=== PATIENT | male | born 1995 | race Caucasian/White ===

== ENCOUNTER 2024-09-17 08:18 | Emergency (ER) | payer OTHER, SELFPAY ==
--- NOTE | 2024-09-17 08:22 | ED.URI ---
HPI - URI/Sore Throat General Chief Complaint: Upper Respiratory Infection Stated Complaint: Fever Time Seen by Provider: 09/17/24 08:41 Source: patient and RN notes reviewed Mode of arrival: ambulatory Limitations: no limitations History of Present Illness HPI Narrative: 29-year-old male presents to the [facility] with a 3 day history of flu-like symptoms. Has felt feverish, chills, body aches, cough and nausea. Has taken Tylenol. Onset (ago): day(s) (3) Treatments prior to arrival: acetaminophen Related Data Allergies Allergy/AdvReac Type Severity Reaction Status Date / Time No Known Allergies Allergy Verified 09/17/24 08:27 Review of Systems Review of Systems: All systems reviewed & are unremarkable except as noted in HPI and below Constitutional: Constitutional: Reports as per HPI, Reports body ache(s), Reports chills and Reports fever(s) (Subjective) ENT: Reports system reviewed and no additional complaints, except as documented Cardiovascular: Cardiovascular: Reports no additional cardiovascular complaints, Denies chest pain and Denies dyspnea Respiratory: Respiratory: Reports as per HPI, Denies chest congestion, Reports cough and Denies dyspnea Gastrointestinal: Gastrointestinal: Reports as per HPI and Reports nausea Musculoskeletal: Musculoskeletal: Reports no additional musculoskeletal complaints Integumentary/Breasts: Skin/Breast: Reports system reviewed and no additional complaints, except as docu PMFSH Comments At the time of my signature, I reviewed and agree with the nursing past medical, surgical, social, and family history. There is no relevant family history pertinent to the patient complaint. Exam Const: General: cooperative, healthy appearing, comfortable, no acute distress, well developed, alert and well nourished Nutritional Appearance: well nourished Orientation/consciousness: patient oriented x3 Limitations: no limitations HENMT: Head: normal to inspection Ears: hearing grossly normal bilaterally, external ears normal, TM's normal bilaterally, EAC's normal, mastoids normal and no periauricular adenopathy Mouth: Yes Normal oral and palatal mucosa present, Yes lip normal, Yes tongue normal and Yes moist mucous membranes Throat: posterior oropharynx normal, uvula midline and no uvular edema Eyes: General: appearance normal, both eyes and all related structures Alignment and Position: alignment normal Neck: Neck: normal visual inspection, full ROM, no lymphadenopathy and no meningeal signs Chest: Chest palpation & inspection: normal inspection of the chest Resp: Effort & Inspection: normal respiratory effort and able to speak in complete sentences Auscultation: clear to auscultation bilaterally, no crackles, no rales, no rhonchi and no wheezes Cardio: Rate: regular rate Skin: General skin exam: normal color and no rashes or lesions noted Neuro: General: patient oriented x3, gait normal, moves all extremities and no meningeal signs Cognition (Neuro): normal cognition Speech: normal speech Gait exam (Neuro): Normal gait present Extrem: General: normal to inspection, full ROM, capillary refill normal and normal gait Psych: Appearance: grossly normal and well kempt Mental Status: mental status grossly normal Speech and movement: Normal speech and movement present and Clear speech present Affect: normal affect Attitude: cooperative Course Course Level of Care: Express Care Visit Vital Signs Vital signs: Vital Signs Temperature 98.0 F 09/17/24 08:32 Pulse Rate 73 09/17/24 08:32 Respiratory Rate 16 09/17/24 08:32 Blood Pressure 135/77 09/17/24 08:32 Pulse Oximetry 99 09/17/24 08:32 Oxygen Delivery Room Air 09/17/24 08:32 Temperature 98.0 F 09/17/24 08:32 Pulse Rate 73 09/17/24 08:32 Respiratory Rate 16 09/17/24 08:32 Blood Pressure 135/77 09/17/24 08:32 Pulse Oximetry 99 09/17/24 08:32 Oxygen Delivery Room Air 09/17/24 08:32 Reviewed MDM - URI/Sore Throat MDM Narrative Medical decision making narrative: Patient sitting comfortably in exam room. Nontoxic, vitals stable. Patient in acute distress. Patient presents with nausea, viral symptoms X3 days. Patient's flu and COVID are negative. Patient is appropriate for outpatient treatment with viral URI with close follow-up Discharge instructions reviewed with patient, as well as provided in writing per nursing staff. The instructions also include specific and strict return/GO TO THE ER as well as f/u information. All questions have been answered, and the patient deny any further questions with discharge and discharge plan. Some parts of this dictation were generated by voice recognition software and may contain typographical and/or grammatical inaccuracies. Differential Diagnosis Differential diagnosis: Likely upper respiratory infection, sinusitis, viral infection and influenza Lab Data Labs: Lab Results 09/17/24 Range/Units 08:54 POC Influenza A Ag Negative (Negative) POC Influenza B Ag Negative (Negative) POC SARS CoV-2 Ag Negative (Negative) Reviewed Critical Care Time Critical Care Time Critical Care Time: No Discharge Plan Discharge Clinical Impression: Upper respiratory infection Qualifiers: URI type: unspecified viral URI Qualified Code(s): J06.9 - Acute upper respiratory infection, unspecified Patient Disposition: Home, Self-Care Condition: Stable Instructions: Antibiotic Form, Upper Respiratory Infection (DC) Additional Instructions: If you are having a hard time finding a physician please call our [facility] group liaison at [phone]. Your rapid COVID test were negative Your rapid flu test was negative Your symptoms are likely due to a viral illness, which is not treated with antibiotics. Typically viral infections last 7-10 days, can linger for couple of weeks. It is very important to treat your symptoms. Drink plenty of water, Gatorade, Pedialyte, ice pops or Jell-O. -Alternate Tylenol and Motrin per package directions for fever or pain. You can alternate every 4 hours -Antihistamine medication such as Zyrtec/Claritin/Jennifer during the day can help improve symptoms. -doing daily nasal irrigations can help relieve pressure your sinuses. Things like a Neti pot -Use Flonase twice a day for 5 days then daily to help reduce the inflammation and dry up your sinuses. -You can also use Mucinex. Be sure to drink plenty of water with this medication at least 8 ounces with every dose and it is important to drink 8 to 10 glasses of water per day. Water is a natural decongestant -Eat and drink things that are easy to swallow, like tea or soup, or popsicles. -Oral rinses such as: Salt water gargles and/or may use topical anesthetic (eg. Chloraseptic spray) or lozenges to relieve dryness or throat pain). -Frequent hand washing or hand graphic editor is one of the best ways to prevent spread of infection. -Using a vaporizer or humidifier at night will also help thin secretions and help with coughing up phlegm. -Follow up with primary care provider in 7-10 days if condition is not improving - For new or worsening symptoms go directly to the nearest ER Patient Language: Ukrainian Prescriptions: New ondansetron 4 mg tablet,disintegrating 4 mg PO Q8H PRN (Reason: nausea and vomiting) Qty: 7 0RF Follow-up/Referrals: UNKNOWN,DOCTOR [Non-Staff] - Stand Alone Forms: Work/School Release IP Time of Disposition: 09:02
[2024-09-17 08:32] VITALS: BP 135/77; PULSE 73; RESP 16; TEMP 36.7; O2SAT 99
--- OUTSIDE RECORDS SUMMARY | 2024-09-17 08:46 | XMS_ITS | Clinical Summary ---
Author Organization [facility] Address [facility] [place] [address] Care Team Providers Care Coffee Shop Aide Name Role Phone Unavailable Primary Care Provider Unavailabl e Allergies No known active allergies Medications amoxicillin-clavu lanate 875-125 MG tabletIndications :Sialadenitis,Cer vical lymphadenitis Take 1 tablet (875 mg total) by mouth 2 (two) times daily. 20 tablet 9 Active methylPREDNISolon e, MIGUE, 4 MG tabletIndications :Sialadenitis Follow package directions 1 each 9 Active Active Problems No known active problems Immunizations Name Administration Dates Next Due Dtap (Generic) 02/29/2000, 6,1994,1994 ,1994 Hepatitis B (Generic: Adult) 08/21/1995,03/20/19 95,02/17/1995 Hib Vaccine, Prp-Omp 1994,1994,08/17 MMR (Generic) 02/29/2000,09/20/1995 Meningococcal Vac A,C,Y,W-135 Sc 06/19/2007 Opv 1994,1994,1994 Polio Ipv (Generic) 02/29/2000 Varicella Vaccine 06/19/1995 Family History Medical History Relation Comments Diabetes Maternal Aunt Diabetes Maternal Uncle Relation Status Comments Maternal Aunt Maternal Uncle Social History Tobacco Use Types Packs/Day Years Used Date Smoking Tobacco: Former Smokeless Tobacco: Never Alcohol Use Standard Drinks/Week Comments Yes 0 (1 standard drink = 0.6 oz pur e alcohol) occassion AUDIT-C Answer Date Recorded Frequency of Alcohol Consumption Never 08/05/2019 Average Number of Drinks Not on file 019 Frequency of Binge Drinking Not on file 07/09 Sex and Gender Information Value Date Recorded Sex Assigned at Not on file Legal Sex Male 8:25 PM CDT Gender Identity Not on file Sexual Orientation Not on file Last Filed Vital Signs Vital Sign Reading Time Taken Comments Blood Pressure 134/83 08/05/2019 11:08 AM 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 Pulse 92 08/05/2019 11:08 AM 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 Temperature 36.4 C (97.6 F) 08/05/2019 11:08 AM 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 Respiratory Rate - - Oxygen Saturation 97% 08/05/2019 11: 08 AM 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 Inhaled Oxygen Concentration - - Weight 82.9 kg (182 lb 12.8 oz) 019 11:08 AM 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 Height 177.8 cm (5' 10 ) 08/05/2019 11: 08 AM 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 Body Mass Index 26.23 08/05/2019 11:08 AM 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 Plan of Treatment Health Maintenance Due Date Last Done Comments Annual Physical 1997 DTaP, Tdap and Td Vaccines (6 - Tdap) 2005 02/29/2000, 01/02/1996, 1994, Additional history exists Hepatitis C 2012 COVID-19 Vaccine ( season) 2024 Influenza Adult (#1) 2024 Hepatitis B Vaccines Completed 08/21/1995, 03/20/1995, 02/17/1995 Meningococcal Vaccine Aged Out 06/19/2007 No chung hanny eligible based on patient's age to complete this topic HPV Vaccines Aged Out No longer eligi ble based on patient's age to complete this topic Meningococcal B Vaccine Aged Out No l onger eligible based on patient's age to complete this topic Pneumococcal Vaccine: Pediatrics (0 to 5 Years) and At-Risk Patients (6 to 64 Years) Aged Out No longer eligible based on patient's age to complete this topic RSV Immunizations Under 20 Months Aged Out No longer eligible based on patient's age to complete this topic Insurance [employer] [facility]
[2024-09-17 09:01] LABS: EDCOVIDSCREEN Negative (Negative); EDINFLUASCREEN Negative (Negative); EDINFLUBSCREEN Negative (Negative)
== END 2024-09-17 09:03 | disposition home or self-care (01) ==
PROVIDERS: Emergency Provider Nurse Practitioner
DX: J06.9 Acute upper respiratory infection, unspecified (principal); Z20.822 Contact with and (suspected) exposure to COVID-19
CPT/HCPCS: 87426; 87804; 99203; G0463